=== PATIENT | female | born 1980 | race Caucasian/White ===

== ENCOUNTER 2017-06-01 13:30 | Emergency (ER) | payer BC ==
[2017-06-01] MEDS ORDERED: EPINEPHrine 2 MG, Admixture Fee 1 EACH in Dextrose 5% in Water 250 ML IV SCH ×3 (13:45)
[2017-06-01] MEDS ORDERED: Magnesium Sulfate 2 GM/100 ML BAG ONE (13:49)
[2017-06-01] MEDS ORDERED: Naloxone HCl 2 mg/2 ml Syringe ONE (14:04)
[2017-06-01] MEDS ORDERED: Naloxone HCl 0.4 mg/ml Vial ONE (14:04)
[2017-06-01 14:19] LABS: Mean Corpuscular HGB CONC 25.9 g/dL (32.0-36.0); Mean Corpuscular Volume 61.7 fl (81.0-99.0); Mean Platelet Volume 4.9 fL (7.4-10.4); Platelet Count 87 thou/uL (130-400); Red Blood Cell (RBC) Count 3.09 mill/uL (4.20-5.40); White Blood Cell (WBC) Count 6.7 thou/uL (4.8-10.8)
[2017-06-01 14:32] LABS: ALT (SGPT) 207 U/L (8-55); AST (SGOT) 397 U/L (5-34); Albumin 2.9 g/dL (3.5-5.0); Alkaline Phosphatase 125 U/L (40-150); Anion Gap 23 mmol/L (10-20); BUN (Urea Nitrogen) 9 mg/dL (7.0-18.7); Bilirubin, Total 0.3 mg/dL (0.2-1.2); Calc. Creatinine Clearance 0 mL/min (70-130); Calcium 7.7 mg/dL (7.8-10.44); Carbon Dioxide 10 mmol/L (22-29); Chloride 112 mmol/L (98-107); Estimated GFR-MDRD 63; Globulin 1.7 g/dL (2.4-3.5); Glucose 452 mg/dL (70-105); Potassium 4.7 mmol/L (3.5-5.1); Protein, Total 4.6 g/dL (6.0-8.3); Sodium 140 mmol/L (136-145)
[2017-06-01 14:34] LABS: CKMB 1.2 ng/mL (0-6.6); Troponin I 0.244 ng/mL (< 0.028)
[2017-06-01 14:51] LABS: Band 1 % (5-11); Hypochromia MODERATE=16-30 cells (100X) (0-5/hpf); Lymphocytes 57 % (21-51); MDiff Complete? YES; Microcytosis MODERATE=15-30 cells (100X) (0-5/hpf); Monocytes 3 % (0-10); Neutrophil 39 % (42-75); Nucleated RBC 4 % (0); Ovalocytes SLIGHT = 2-5 cells (100X) (0-1/hpf); PLT Morphology Comment Appears Decreased; Polychromasia SLIGHT = 2-3 cells (100X) (0-2/hpf); Tear Drops SLIGHT = 2-5 cells (100X) (0-1/hpf)
[2017-06-01] MEDS ORDERED: Dextrose 50% Abboject 50 ML SYRINGE ONE (17:00)
[2017-06-01] MEDS ORDERED: Calcium Chloride 1 GM/10 ML Abboject SYRINGE ONE (17:00)
[2017-06-01] MEDS ORDERED: EPINEPHrine 1 MG/10 ML Abboject SYRINGE ONE (17:00)
[2017-06-01] MEDS ORDERED: Atropine Sulfate 1 mg/10 ml Syringe ONE (17:00)
[2017-06-01] MEDS ORDERED: Sodium Bicarb 50 MEQ/50 ML Abboject 8.4% SYRINGE ONE (17:00)
== END 2017-06-01 14:06 ==
LOC: ERS 13:30
DX: I46.9 Cardiac arrest, cause unspecified (principal); E66.9 Obesity, unspecified
CPT/HCPCS: 31500; 36416; 36680; 80053; 82553; 84484; 85025; 85060; 92950; 96374; 96375; J0171; J0461; J2310; J2997; J3475; J7070